=== PATIENT | female | born 1945 | race Caucasian/White ===

== ENCOUNTER 2022-10-05 09:47 | Emergency (ER) | payer OTHER ==
[~2022-10-05] VITALS: Ht 154.9 cm; Wt 59.0 kg
--- NOTE | 2022-10-05 10:16 | NUR ---
Patient BIB self from home. Chief Complaint: Patient states Heartburn x 2w. Patient a&0x4 and stable. Patient denies medical problem hx.
[2022-10-05 10:20] VITALS: BP_SYST 154
--- NOTE | 2022-10-05 10:24 | NUR ---
EMT at bedside performing EKG
[2022-10-05] MEDS ORDERED: MAG HYDROX/AL HYDROX/SIMETH 30 ML, LIDOCAINE VISCOUS 2% 15ML (PO) 15 ML, DICYCLOMINE HC... PO ONE ×3 (10:30)
--- NOTE | 2022-10-05 10:30 | NUR ---
ER at bedside examining patient.
--- NOTE | 2022-10-05 10:38 | NUR ---
Patient in xray now
--- NOTE | 2022-10-05 10:47 | NUR ---
Patient verified name, , and denied allergies prior to administration of the GI Cocktail. Patient agreed to administration and tolerated well. Patient provided teaching on gag reflex and was advised not to drink water, patient verbalized understanding.
[2022-10-05 10:56] LABS: BASOPHILS % (AUTO) 0.4 % (0.0-2.0); EOSINOPHILS % (AUTO) 0.2 % (0.0-4.0); HEMOGLOBIN 12.7 g/dL (12.0-16.0); LYMPHOCYTES # (AUTO) 1.2 K/uL (1.0-5.5); MEAN CORPUSCULAR HEMOGLOBIN 29 pg (27-31); MEAN CORPUSCULAR HGB CONC 33 % (32-36); MEAN CORPUSCULAR VOLUME 88 fL (79.0-98.0); MONOCYTES # (AUTO) 0.7 K/uL (0.0-1.0); MONOCYTES % (AUTO) 8.6 % (1.7-9.3); NEUTROPHILS # (AUTO) 6.6 K/uL (1.8-7.7); NEUTROPHILS % (AUTO) 76.8 % (40.0-70.0); PLATELET COUNT (AUTO) 205 K/uL (130-430); RED BLOOD CELL COUNT(AUTO) 4.32 MIL/uL (4.2-6.2); RED CELL DISTRIBUTION WIDTH 13.7 % (9.0-15.0); WHITE BLOOD COUNT (AUTO) 8.6 K/uL (4.8-10.8)
[2022-10-05 11:09] LABS: ANION GAP 7 (5-15); CALCIUM 9.2 mg/dL (8.4-11.0); CHLORIDE 100 mmol/L (98-107); CREATININE 0.85 mg/dL (0.55-1.30); GLUCOSE 116 mg/dL (70-99); UREA NITROGEN, BLOOD 21 mg/dL (8-21)
[2022-10-05 11:25] LABS: ALANINE AMINOTRANSFERASE 23 U/L (12-78); ALBUMIN 3.8 g/dL (3.4-4.8); ASPARTATE AMINOTRANSFERASE 20 U/L (10-37); LIPASE 144 U/L (73-393); TOTAL BILIRUBIN 0.4 mg/dL (0.0-1.0)
[2022-10-05] MEDS ORDERED: PRO40 PO (12:02)
[2022-10-05] MEDS ORDERED: PEPTAB PO (12:02)
[2022-10-05] MEDS ORDERED: SUCR1TAB2 PO (12:02)
--- NOTE | 2022-10-05 12:20 | NUR ---
Patient given written and verbal discharge instructions and verbalizes understanding. ER MD Swann discussed with patient the results and treatment provided. Patient in stable condition. ID arm band removed. Rx sent to pharmacy on file. Patient educated on pain management and to follow up with PMD.. Opportunity for questions provided and answered. Medication side effect fact sheet provided.
== END 2022-10-05 12:20 | disposition home or self-care (01) ==
LOC: SED 09:47
DX: K21.9 Gastro-esophageal reflux disease without esophagitis (principal); R10.13 Epigastric pain; I10 Essential (primary) hypertension; Z79.899 Other long term (current) drug therapy
CPT/HCPCS: 99285; 71045; 80053; 83690; 85025; 84484; 36415; 93005; J2001

== ENCOUNTER 2023-07-14 16:55 | Emergency (ER) | payer OTHER ==
[~2023-07-14] VITALS: Ht 162.6 cm; Wt 59.0 kg
[~2023-07-14 16:55] MED LIST: PEPTAB PO; PRO40 PO; SUCR1TAB2 PO
[2023-07-14 17:08] VITALS: BP_SYST 138; PULSE 82; RESP 16; TEMP 98.2; O2SAT 97
[2023-07-14] MEDS ORDERED: MECLIZINE HCL 25 MG TABLET (ANITVERT) PO ONE (17:45)
[2023-07-14] MEDS ORDERED: MECL-225 PO (18:43)
[2023-07-14 18:54] VITALS: BP_SYST 126; PULSE 72; RESP 15; TEMP 98.2; O2SAT 97
== END 2023-07-14 18:54 | disposition home or self-care (01) ==
LOC: SED 16:55
DX: R42 Dizziness and giddiness (principal); Z79.899 Other long term (current) drug therapy
CPT/HCPCS: 99283; J8597